=== PATIENT | female | born 1980 | race Caucasian/White ===

== ENCOUNTER 2020-12-21 09:21 | Day surgery (SDC) | payer OTHER ==
[~2020-12-21] VITALS: Ht 177.8 cm; Wt 102.5 kg
[~2020-12-21 09:21] MED LIST: CLINDAMYCIN 900MG PREMIX 50 ML IV PRN; ESCITALOPRAM OX20 MG PO; FLUT9.9S NS; IV RINGERS,LACTATED 1000ML 1,000 ML IV SCH; LORA10CA PO; MORPHINE SULFATE 2 MG/ML VIAL. IVP PRN; ZOLP5TAB PO; fentaNYL PF VIAL 100 MCG/2 ML VIAL IVP PRN; tumeric
[2020-12-21] MEDS ORDERED: fentaNYL PF VIAL 100 MCG/2 ML VIAL ONE ×4 (10:29→13:17)
[2020-12-21] MEDS ORDERED: DEXAMETHASONE SOD PHOS 4 MG/ML VIAL ONE (10:29)
[2020-12-21] MEDS ORDERED: LIDOCAINE 2% PF 5 ML VIAL. ONE (10:29)
[2020-12-21] MEDS ORDERED: ONDANSETRON PF 4 MG/2 ML VIAL. ONE (10:29)
[2020-12-21] MEDS ORDERED: PROPOFOL 10 MG/ML (20ML) VIAL. IV ONE ×2 (10:29→13:20)
[2020-12-21] MEDS ORDERED: MIDAZOLAM HCL/PF 2 MG/2 ML VIAL. ONE (10:30)
--- NOTE | 2020-12-21 10:44 | PDOC1 ---
History and Physical Date of Admission Date of Admission DATE: 12/21/20 TIME: 10:39 Identification/Chief Complaint Chief Complaint Left elbow pain and instability. Left hand numbness. Source Source: Chart review History of Present Illness History of Present Illness 40-year-old patient here with left hand ulnar digitr numbness/tingling and elbow pain with instability symptoms. 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 She describes progressive elbow pain that began to bother her after bicycle riding. Her pain progressed and became severe and constant throughout the day independent of activity. Her pain is a sharp shooting pain located to her elbow. This is somewhat felt in her fingers but more located to her elbow. Her elbow is also unstable when performing yoga "like it's not 100%". She had a history of a broken elbow when she was 6-7 but never had any other issues. An MRI done without arthrogram showed at least a partial-thickness tear of the UCL, and I considered getting an MR arthrogram to confirm a higher grade injury which is likely present based on her symptoms. She also has an EMG showing cubital tunnel syndrome and its likely a repetitive stretch injury of the nerve related to the UCL instability. Past Medical History Past Medical History Exercise-induced asthma. Hypertension. Past Surgical History Past Surgical History Right Pelvic avulsion repair 2011, umbilical hernia 2012, right shoulder 2018 Family History Family History: Hypothyroidism Social History Smoke: No ALCOHOL: occassional Current Medications Current Medications Current Medications Fentanyl Citrate (Fentanyl 2ml Vial) 25 mcg PRN Q5MIN PRN IVP MILD PAIN 1-3; Start 12/21/20 at 06:00; Stop 12/22/20 at 05:59 Fentanyl Citrate (Fentanyl 2ml Vial) 50 mcg PRN Q5MIN PRN IVP MODERATE PAIN 4- 6; Start 12/21/20 at 06:00; Stop 12/22/20 at 05:59 Morphine Sulfate (Morphine Sulfate) 1 mg PRN Q10MIN PRN IVP SEVERE PAIN 7-10; Start 12/21/20 at 06:00; Stop 12/22/20 at 05:59 Ringer's Solution 1,000 ml @ 30 mls/hr Q24H IV Last administered on 12/21/20at 10:22; Start 12/21/20 at 06:00; Stop 12/21/20 at 17:59 Hydromorphone HCl (Dilaudid) 0.5 mg PRN Q10MIN PRN IVP SEVERE PAIN 7-10, 2nd CHOICE; Start 12/21/20 at 06:00; Stop 12/22/20 at 05:59 Prochlorperazine Edisylate (Compazine) 5 mg PACU PRN PRN IVP NAUSEA, MRX1; Start 12/21/20 at 06:00; Stop 12/22/20 at 05:59 Clindamycin Phosphate 50 ml @ 100 mls/hr 1X PREOP PRN IV PRIOR TO PROCEDURE; Start 12/21/20 at 06:00; Stop 12/21/20 at 18:00 Propofol (Diprivan) 200 mg STK-MED ONCE IV ; Start 12/21/20 at 10:29; Stop 12/21/20 at 10:29; Status DC Lidocaine HCl (Lidocaine Pf 2% Vial) 5 ml STK-MED ONCE .ROUTE ; Start 12/21/20 at 10:29; Stop 12/21/20 at 10:29; Status DC Dexamethasone Sodium Phosphate (Decadron) 4 mg STK-MED ONCE .ROUTE ; Start 12/21/20 at 10:29; Stop 12/21/20 at 10:30; Status DC Ondansetron HCl (Zofran) 4 mg STK-MED ONCE .ROUTE ; Start 12/21/20 at 10:29; Stop 12/21/20 at 10:30; Status DC Fentanyl Citrate (Fentanyl 2ml Vial) 100 mcg STK-MED ONCE .ROUTE ; Start 12/21/20 at 10:29; Stop 12/21/20 at 10:30; Status DC Midazolam HCl (Versed) 2 mg STK-MED ONCE .ROUTE ; Start 12/21/20 at 10:30; Stop 12/21/20 at 10:30; Status DC Active Scripts Active Reported Flonase Allergy Relief (Fluticasone Propionate) 9.9 Ml [place].susp 2 Sprays NS DAILY Claritin (Loratadine) 10 Mg Capsule 1 Cap PO DAILY 30 Days Ambien (Zolpidem Tartrate) 5 Mg Tablet 5 Mg PO PRN QHS PRN Escitalopram Oxalate 20 Mg Tablet 20 Mg PO DAILY [tumeric] DAILY Allergies Allergies: Coded Allergies: Penicillins (Verified Allergy, Intermediate, Rash, 12/21/20) Physical Exam General: Alert, Cooperative HEENT: Atraumatic Lungs: Normal air movement Heart: RRR Abdomen: Soft Extremities: No cyanosis, No edema, Normal pulses, Other (The LEFT elbow shows normal alignment. Tinel's at the elbow is positive. Positive elbow flexion test and moving valgus test. Positive Milking test. ) Skin: No breakdown, No significant lesion Neuro: Other (Decreased light touch sensation left hand ulnar digits) Vitals Vitals Vital Signs Date Time Temp Pulse Resp B/P (MAP) Pulse Ox O2 Delivery O2 Flow Rate FiO2 12/21/20 09:55 98.4 67 20 124/76 96 Room Air 98.4 Labs Labs Laboratory Tests Test 12/21/20 08:51 Bedside Urine HCG, Qualitative Hcg negative (Negative) Laboratory Tests Test 12/21/20 08:51 Bedside Urine HCG, Qualitative Hcg negative (Negative) Images Images Reports reviewed, Images independently reviewed of the left elbow performed 09/07/2020 at [facility]. Impression: 1. Grade 1 through 2 sprain of the proximal portion anterior band of the ulnar collateral ligament. There is a separate small partial-thickness tear involving the outer layer of the anterior band of the ulnar collateral ligament. This involves up to one third of the thickness of the ulnar collateral ligament. Only if clinically warranted MR arthrogram may be beneficial for further characterization. 2. Low grade 1 strain of the small portion of the proximal flexor digitorum superficialis muscle overlying the ulnar collateral ligament. I reviewed the MRI as well in clinic and there is the appearance of an old remote radial head fracture and also on the corresponding condyle appearance of a small osteochondral defect. Reports reviewed, Images independently reviewed of the left upper extremity EMG on 11/24/20 Patient Complaints: Evaluate left elbow pain, arm numbness Patient History / Exam: See EMR NCV & EMG Findings: Evaluation of the Left ulnar motor nerve showed decreased conduction velocity (A Elbow-B Elbow, 48 m/s). The Left ulnar sensory nerve showed reduced amplitude (5.6 (10^-6)V). All remaining nerves (as indicated in the following tables) were within normal limits. All examined muscles (as indicated in the following table) showed no evidence of electrical instability. Impression: 1. There is a moderate left cubital tunnel syndrome with sensory axonal loss. 2. There is a no evidence of left carpal tunnel syndrome (median nerve entrapment at wrist) 3. There is no evidence of polyneuropathy affecting the studied extremity. 4. There is no sign of L cervical radiculopathy. 5. There is no sign of L brachial plexopathy. 6. There is no evidence of a left neurogenic thoracic outlet syndrome. VTE Prophylaxis Ordered VTE Prophylaxis Devices: Yes VTE Pharmacological Prophylaxi: No Assessment/Plan Assessment/Plan Her MRI shows a grade 1-2 sprain of her ulnar collateral ligament although her exam findings indicate this may be more severe; in addition, her EMG shows evidence of cubital tunnel syndrome. We reviewed her reports together and discussed the natural history of the condition along with risks, benefits, and alternatives to treatment. Given her failure of more conservative measures and likely continued pain and instability without intervention, my recommendation is surgery. Plan for left elbow UCL reconstruction with hamstring autograft and subcutaneous ulnar nerve transposition. We discussed the potential risks of infection, neurovascular injury, fracture, bleeding, autograft harvest, or other potential surgical or anesthetic complications. We also discussed postoperative treatment and expectations. All of her questions were answered and she desires to proceed with surgery. Justifications for Admission Other Justification KEITH PEACE MD Dec 21, 2020 10:44
[2020-12-21] MEDS ORDERED: BUPIVACAINE-EPI 0.25% 30 ML VIAL KIT. ONE (10:50)
[2020-12-21] MEDS ORDERED: KETOROLAC 60 MG/2 ML VIAL. ONE (11:08)
[2020-12-21] MEDS ORDERED: ePHEDrine PF IN SALINE 50 MG/10 ML SYRINGE. IV ONE (11:10)
[2020-12-21] MEDS ORDERED: SEVOFLURANE > 120 MINUTES. IH ONE (11:11)
[2020-12-21] MEDS ORDERED: PROCHLORPERAZINE 10 MG/2 ML VIAL. ONE (13:17)
[2020-12-21] MEDS: fentaNYL PF VIAL 100 MCG/2 ML VIAL IVP PRN ×3 (13:30→13:57)
[2020-12-21] MEDS: PROCHLORPERAZINE 10 MG/2 ML VIAL. IVP PRN ×2 (13:30→13:50)
--- NOTE | 2020-12-21 13:41 | PDOC4 ---
Operative Note Operative Note Date of Procedure: December 21, 2020 Pre-Op Diagnosis: * Tear of ulnar collateral ligament of left elbow, initial encounter - S53.442A * Cubital tunnel syndrome on left - G56.22 * Elbow pain, left - M25.522 Post-Op Diagnosis: * Tear of ulnar collateral ligament of left elbow, initial encounter - S53.442A * Cubital tunnel syndrome on left - G56.22 * Elbow pain, left - M25.522 Procedure: * Left elbow, reconstruction medial collateral ligament, elbow, with tendon graft (includes harvesting of graft) using ipsilateral autologous hamstring autograft CPT 82044 * Left elbow, ulnar nerve neuroplasty and subcutaneous ulnar nerve transposition CPT 47087 Surgeon: Keith Lowe MD Doughnut Batter Mixer: JASPAL Pelaez Anesthesia: General EBL: 100 mL Specimens Obtained: none Complications: none Drains: none Tourniquet: Left arm 79 minutes at 275 mmHg Implants: Arthrex FDL Implant System 4.75 mm Indications for Procedure: 40-year-old female avid bicyclist with left hand ulnar digit numbness/tingling and elbow pain with instability symptoms. 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 She describes progressive elbow pain that began to bother her after bicycle riding. She rides on a Peloton bike, has a road bike, and has a mountain bike. She had been training for a "century" (100 mile) ride but was unable to complete the training due to the persistent elbow and hand symptoms. Her pain progressed and became severe and constant throughout the day independent of activity. Her pain is a sharp shooting pain located to her elbow. This is somewhat felt in her fingers but more located to her elbow. Her elbow is also unstable when performing yoga "like it's not 100%". She had a history of a broken elbow when she was 6-7 but never had any other issues. An MRI done without arthrogram showed at least a partial-thickness tear of the UCL, and I considered getting an MR arthrogram to confirm a higher grade injury which is likely present based on her symptoms. She also has an EMG showing cubital tunnel syndrome and is likely a repetitive stretch injury of the nerve related to the UCL instability. Her MRI shows a grade 1-2 sprain of her ulnar collateral ligament although her exam findings indicate this may be more severe; in addition, her EMG shows evidence of cubital tunnel syndrome. We reviewed her reports together and discussed the natural history of the condition along with risks, benefits, and alternatives to treatment. Given her failure of more conservative measures and likely continued pain and instability without intervention, my recommendation is surgery. Plan for left elbow UCL reconstruction with hamstring autograft and subcutaneous ulnar nerve transposition. We discussed the potential risks of infection, neurovascular injury, fracture, bleeding, autograft harvest, or other potential surgical or anesthetic complications. We also discussed postoperative treatment and expectations. All of her questions were answered and she desires to proceed with surgery Procedure in Detail: The patient was identified in the preoperative holding area. The correct left upper extremity was marked by me and left leg noted for graft harvest. The patient was taken to the operating room where general anesthetic was used. The patient was positioned supine on the operating table. A tourniquet was applied to the upper portion of the limb. Preoperative antibiotics were given intravenously. A timeout procedure was performed. The left arm and the left leg were both prepared in sterile fashion using ChloraPrep and sterile drapes were applied to both the arm and the leg. The tourniquet was only applied to the left upper arm, no tourniquet was used on the left leg or lower extremity. Drapes were applied initially to both arm and leg, with an impervious stockinette over the lower portion of the left lower extremity. The hamstring graft was harvested first. A 5 cm incision was made over the pes anserine bursa. Sharp dissection was used and Bovie electrocautery was used for hemostasis. The sartorius fascia was elevated. The semitendinosis and gracilis tendons were easily identified. The gracilis tendon was stripped up the thigh with a [facility] tendon harvester and detached from the upper tibia and taken to the back table. My catalog library assistant Josias further prepared the graft. He removed excess muscle and synovium. He folded the graft over a #2 FiberWire suture, and whipstitch the folded ends with #2-0 Vicryl for a distance of 15 mm. The graft was kept moistened and pretensioned until implantation. I proceeded with the elbow surgery. Josias also closed the leg incision, at this time with irrigation. Bovie electrocautery was used. 0.25% ropivacaine with epinephrine was injected into the skin edges. This incision was closed with 2-0 Vicryl and 3-0 STRATAFIX Monocryl. I proceeded with the arm portion of the case. An Esmarch bandage was used to exsanguinate the limb and the tourniquet was inflated to 275 mmHg. A curvilinear incision was made following the course of the ulnar nerve at the left elbow. I used loupe magnification throughout, 3.5 extended field, to prevent neurovascular injury. Bovie electrocautery was used, monopolar cautery in the subcutaneous tissues and then as I approached the ulnar nerve I used bipolar cautery. The ulnar nerve was easily identified and exposed and did appear to be somewhat inflamed and under tension due to the ulnar collateral ligament instability. Careful scissor dissection was performed under loupe magnification until the nerve was completely freed from its bed, and then vessel loops were used to plan the transposition into the subcutaneous pocket over the flexor tendons and to carefully mobilize and retract the nerve for protection throughout the ligament reconstruction portion of the case. The nerve was not secured into the transposed location until at the time of closure. Next I exposed the residual ulnar collateral ligament. Careful blunt dissection and sharp dissection was used through the ulnar aspect of the flexor muscles at the medial epicondyle, and palpation of the sublime tubercle was used for the ulnar location of the ulnar collateral ligament. Careful dissection was performed with a 15 blade scalpel, and the ligament does appear chronically stretched and somewhat disorganized. The UCL fibers show signs of injury and stretching, and with stress the joint gaps open several millimeters. I had to remove some of the UCL fibers to perform the reconstruction. I used the sublime tubercle as a landmark. A guidepin was placed first, directed distally, with plans to use a 5.5 mm tunnel, about 1 mm from the edge of the articular surface of the ulnohumeral articulation. Sizing of the graft showed that it would not fit through a 5.0 mm tunnel sizer without difficulty, and 5.5 mm diameter is the appropriate measurement. The guidepin was placed deep into the ulna proximal metaphysis, and then the 5.5 mm cannulated reamer was used to create the ulnar socket for the ulnar attachment of the UCL reconstruction. All of the instrumentation and implants used were Arthrex. After the guidepin was placed in the 5.5 mm socket was made, I then placed the tendon graft at the tip of the school health aide and initially used a 5.5 mm screw but this was too large to fit in the tunnel and ultimately broke the screw during insertion. I then used a 4.75 mm screw which fit nicely, and secured the graft extremely well. I was able to lift the arm off the table using the tendon graft which was now docked into the ulna at the folded midportion and very secure. Next I drilled the humeral tunnels in the medial epicondyle. I used a 5.5 mm reamer, over a guidewire, to create the socket approximately 18 mm in depth. The Arthrex drill guide was then used to create the corresponding Y-shaped tunnels for suture passage in the proximal portion of the medial epicondyle. The drill guide was removed. A nitinol guidewire was placed with a loop, for passage of sutures. The 2 grafts were carefully measured with the elbow in the reduced position, and then trimmed to an appropriate length, leaving 15 mm of graft in the 18 mm tunnel. These were now whipstitched independently with fiber loop #2 FiberWire suture. The 2 suture tails from one limb of the graft was placed through the more anterior portion of the Y-tunnel, and 2 limbs of suture were placed through the more posterior portion of the Y-tunnel, and the grafts were then docked into the deep portion of the tunnel by tensioning the sutures. My catalog library assistant Josias now held the elbow reduced with varus moment, and I was able to tension the sutures and tighten the grafts nicely. With the elbow held reduced I then tied the surgical sutures securely and tightly over the bone bridge at the posterior aspect of the medial epicondyle. Probing with an Adson showed a secure tight UCL reconstruction with the hamstring autograft. Copious saline irrigation was used. The tourniquet was released. Bovie electrocautery was used for hemostasis. I closed the fascia overlying the UCL reconstruction using #0 Vicryl [id number] sutures. The ulnar nerve was now finally placed in its transposed position for the final time. I had Josias hold a smooth retractor against the nerve to help protect it from placement of the sutures. I used multiple #0 Vicryl sutures, with all of the sutures placed before tying any of the knots. This secures the subcutaneous tissue to the fascia at the medial epicondyle with the nerve and its new transposed subcutaneous pocket. The patient has several centimeters of subcutaneous tissues of the should give adequate padding over the nerve. With the nerve held protected by the retractor, I then tied the multiple #0 Vicryl sutures and closed the pocket for the final time. The skin edges were injected with 0.25% bupivacaine with epinephrine. The incision was closed in layers by my catalog library assistant with #2-0 Vicryl and with #3-0 Monocryl STRATA FIX suture. Sterile dressings were applied. A posterior splint was applied with a varus moment. A DonJoy UltraSling will be used. Needle and sponge counts were correct. There were no apparent complications. KEITH LOWE MD Dec 21, 2020 13:41
[2020-12-21] MEDS ORDERED: HYDROmorphone 2 MG/ML VIAL ONE (14:51)
[2020-12-21] MEDS: HYDROmorphone 2 MG/ML VIAL IVP PRN ×2 (14:56→15:06)
[2020-12-21] MEDS ORDERED: oxyCODONE/APAP 5/325 1 TAB TABLET ONE (15:27)
[2020-12-21] MEDS ORDERED: oxyCODONE/APAP 5/325 1 TAB TABLET PO ONE (15:30)
[2020-12-21 15:32] VITALS: BP 132/71
== END 2020-12-21 16:37 | disposition home or self-care (01) ==
LOC: SURG 09:21
PROVIDERS: ATTEND Orthopaedic Surgery
DX: S53.442A Ulnar collateral ligament sprain of left elbow, initial encounter (principal); G56.22 Lesion of ulnar nerve, left upper limb; M25.522 Pain in left elbow; E66.9 Obesity, unspecified; F32.9 Major depressive disorder, single episode, unspecified; Z79.899 Other long term (current) drug therapy; Z98.890 Other specified postprocedural states; Z72.89 Other problems related to lifestyle; Z88.0 Allergy status to penicillin; X58.XXXA Exposure to other specified factors, initial encounter; Y93.89 Activity, other specified; Y92.89 Other specified places as the place of occurrence of the external cause; Y99.8 Other external cause status
CPT/HCPCS: 24346; 64718; 81025; A4364; A4930; A6253; A6402; A6450; C1776; J0780; J1100; J1170; J1885; J2250; J2405; J2704; J3010; J3490; A4452; A4657; A6452